=== PATIENT | female | born 1995 | race Caucasian/White ===

== ENCOUNTER 2016-11-01 08:27 | Emergency (ER) | payer BC ==
[2016-11-01 08:43] VITALS: BMI 32.9
[2016-11-01 09:43] LABS: RBC URINE 3 /hpf (0-3); URINE BACTERIA OCC (<OCC); URINE BILIRUBIN NEGATIVE (NEGATIVE); URINE BLOOD 1+ (NEGATIVE); URINE COLOR Yellow (YELLOW); URINE GLUCOSE (UA) NORMAL (Normal); URINE KETONE TRACE mg/dL (NEGATIVE); URINE LEUKOCYTE ESTERASE TRACE Leu/uL (Negative); URINE PROTEIN NEGATIVE (NEGATIVE); URINE UROBILINOGEN NORMAL mg/dL (0.2-1.0); WBC URINE 3 /hpf (0-5)
[2016-11-01] MEDS ORDERED: Iohexol 240 (50 ml) PO STA (10:04)
[2016-11-01] MEDS ORDERED: Sodium Chloride 0.9% 1,000 ML IV STA (10:04)
[2016-11-01] MEDS ORDERED: Iohexol 240 (50 ml) ONE (10:13)
[2016-11-01] MEDS ORDERED: Sodium Chloride 0.9% 1,000 ML ONE (10:14)
[2016-11-01 10:23] LABS: BASO % 0.5 % (0.0-2.0); EOS # 0.1 K/uL (0.0-0.7); EOS % 1.1 % (0.0-4.0); HEMATOCRIT 34.2 % (34.0-47.0); LYMPH # 1.7 K/uL (1.0-4.3); LYMPH % 20.4 % (20.0-40.0); MEAN CELL VOLUME 67.1 fL (81.0-99.0); MEAN CORPUSCULAR HEMOGLOBIN 20.4 pg (27.0-31.0); MEAN CORPUSCULAR HGB CONC 30.5 g/dL (33.0-37.0); MONO # 0.5 K/uL (0.0-0.8); RED CELL DISTRIBUTION WIDTH 20.4 % (11.5-14.5)
[2016-11-01 10:27] LABS: WHITE BLOOD COUNT 8.2 K/uL (4.8-10.8)
[2016-11-01 10:28] LABS: CHLORIDE 103 mmol/L (98-107); POTASSIUM 3.7 mmol/L (3.6-5.2); SODIUM 141 mmol/L (132-148)
[2016-11-01 10:30] LABS: ALKALINE PHOSPHATASE 115 U/L (38-126); AST/SGOT 26 U/L (14-36); BILIRUBIN,TOTAL 0.4 mg/dL (0.2-1.3); CARBON DIOXIDE 26 mmol/L (22-30); GFR AFRICAN-AMERICAN > 60; TOTAL PROTEIN 7.8 g/dL (6.3-8.3)
[2016-11-01 10:31] LABS: ALT/SGPT 27 U/L (9-52); BLOOD UREA NITROGEN 14 mg/dL (7-17); CALCIUM 8.5 mg/dl (8.6-10.4); GLUCOSE,RANDOM 78 mg/dL (65-105)
[2016-11-01 11:02] VITALS: RESP 20
[2016-11-01] MEDS ORDERED: Iodixanol 320 MG/ML 100 ML BOTTLE IV ONE (12:17)
--- NOTE | 2016-11-01 13:52 | CT ---
PROCEDURE: CT Abdomen and Pelvis with contrast HISTORY: RLQ abd pain COMPARISON: None. TECHNIQUE: Contrast dose: 100 cc of Visipaque Radiation dose: Total exam DLP = 986 mGy-cm. FINDINGS: LOWER THORAX: Unremarkable. LIVER: Unremarkable. No gross lesion or ductal dilatation. GALLBLADDER AND BILE DUCTS: Unremarkable. PANCREAS: Unremarkable. No gross lesion or ductal dilatation. SPLEEN: Unremarkable. ADRENALS: Unremarkable. No mass. KIDNEYS AND URETERS: Unremarkable. No hydronephrosis. No solid mass. VASCULATURE: Unremarkable. No aortic aneurysm. BOWEL: There is mild mural thickening in the descending and sigmoid colon. Part of this appearance may be due to lack of distension. There is no oral contrast in this portion of the colon. Mild colitis cannot be excluded APPENDIX: Normal appendix. PERITONEUM: Unremarkable. No free fluid. No free air. LYMPH NODES: Unremarkable. No enlarged lymph nodes. BLADDER: Unremarkable. REPRODUCTIVE: Unremarkable. BONES: No acute fracture. OTHER FINDINGS: None. IMPRESSION: There is mild mural thickening in the descending and sigmoid colon. Part of this appearance may be due to lack of distension. There is no oral contrast in this portion of the colon. Mild colitis cannot be excluded
--- NOTE | 2016-11-01 14:34 | C.PDOC ---
History Of Present Illness 21 y/o female presents to the emergency department complaining of RLQ abdominal pain that started today. She also reports some diarrhea and states she saw "tinges of blood in it." Patient reports past history of similar but states she has never been worked up for it. Patient denies any fever, vomiting, back pain, chest pain, shortness of breath, or other complaints. Time Seen by Provider: 11/01/16 09:01 Chief Complaint (Nursing): GI Problem History Per: Patient History/Exam Limitations: no limitations Onset/Duration Of Symptoms: Days (1), Persistent Current Symptoms Are (Timing): Still Present Location Of Pain/Discomfort: RLQ Radiation Of Pain To:: None Associated Symptoms: Diarrhea Recent travel outside of the [place]: No Past Medical History Reviewed: Historical Data, Nursing Documentation, Vital Signs Vital Signs: Last Vital Signs Temp 97.9 F 11/01/16 14:53 Pulse 76 11/01/16 14:53 Resp 20 11/01/16 14:53 BP 112/81 11/01/16 14:53 Pulse Ox 100 11/01/16 15:46 - Medical History PMH: No Chronic Diseases Surgical History: No Surg Hx Family History: States: No Known Family Hx - Social History Hx Tobacco Use: No Hx Alcohol Use: No Hx Substance Use: No - Immunization History Hx Tetanus Toxoid Vaccination: No Hx Influenza Vaccination: Yes (2016) Hx Pneumococcal Vaccination: No Review Of Systems Except As Marked, All Systems Reviewed And Found Negative. Constitutional: Negative for: Fever Cardiovascular: Negative for: Chest Pain Respiratory: Negative for: Shortness of Breath Gastrointestinal: Positive for: Abdominal Pain (RLQ), Diarrhea (with "tinges of blood"). Negative for: Vomiting Musculoskeletal: Negative for: Back Pain Physical Exam - Physical Exam Appears: Non-toxic, No Acute Distress Skin: Normal Color, Warm, Dry Head: Atraumatic, Normacephalic Eye(s): bilateral: Normal Inspection, PERRL Oral Mucosa: Moist Neck: Normal ROM, Supple Chest: Symmetrical Cardiovascular: Rhythm Regular Respiratory: Normal Breath Sounds, No Rales, No Rhonchi, No Wheezing Gastrointestinal/Abdominal: Bowel Sounds, Soft, Tenderness (RLQ), No Guarding, No Rebound Back: Normal Inspection, No CVA Tenderness Extremity: Normal ROM, No Swelling Neurological/Psych: Oriented x3, Normal Speech, Normal Cognition ED Course And Treatment - Laboratory Results Result Diagrams: 11/01/16 10:11 11/01/16 10:11 O2 Sat by Pulse Oximetry: 100 (ra) Pulse Ox Interpretation: Normal - CT Scan/US CT Abd/Pelvis Other Rad Studies (CT/US): Read By Radiologist, Radiology Report Reviewed CT/US Interpretation: Accession No. : [id number]. Patient Name / ID : HOLDEN ZURITA / [id number]. Exam Date : 11/01/2016 12:51:20 ( Approved ). Study Comment : Sex / Age : F / 21Y. Creator : Tam Wilson MD. Dictator : Tam Wilson MD. Hop Trainer : Terminal Make Up Operator : Tam Wilson MD. Approver2 : Report Date : 11/01/2016 13:51:12. My Comment : . PROCEDURE: CT Abdomen and Pelvis with contrast. HISTORY: RLQ abd pain. COMPARISON: None. TECHNIQUE: Contrast dose: 100 cc of Visipaque. Radiation dose: Total exam DLP = 986 mGy-cm. FINDINGS: LOWER THORAX: Unremarkable. LIVER: Unremarkable. No gross lesion or ductal dilatation. GALLBLADDER AND BILE DUCTS : Unremarkable. PANCREAS: Unremarkable. No gross lesion or ductal dilatation. SPLEEN: Unremarkable. ADRENALS: Unremarkable. No mass. KIDNEYS AND URETERS: Unremarkable. No hydronephrosis. No solid mass. VASCULATURE: Unremarkable. No aortic aneurysm. BOWEL: There is mild mural thickening in the descending and sigmoid colon. Part of this appearance may be due to lack of distension. There is no oral contrast in this portion of the colon. Mild colitis cannot be excluded. APPENDIX: Normal appendix. PERITONEUM: Unremarkable. No free fluid. No free air. LYMPH NODES: Unremarkable. No enlarged lymph nodes. BLADDER: Unremarkable. REPRODUCTIVE: Unremarkable. BONES: No acute fracture. OTHER FINDINGS: None. IMPRESSION: There is mild mural thickening in the descending and sigmoid colon. Part of this appearance may be due to lack of distension. There is no oral contrast in this portion of the colon. Mild colitis cannot be excluded Progress Note: CT Abd/Pelvis, Blood Work, Urinalysis, and Urine HCG were ordered. Patient treated with Morphine IVP, Zofran IVP, and IV Fluids. CT report reviewed, possible colitis. Patient treated with Flagyl PO and Cipro PO. On reevaluation, patient reports improvement of abdominal pain. Patient is resting comfortably, abdomen remains soft, and patient is tolerating PO. Patient feels comfortable going home. Patient discharged home and instructed to follow up with physician/clinic in 1-2 days or return to ED if symptoms persist or worsen. Disposition - Disposition Disposition: HOME/ ROUTINE Disposition Time: 14:31 Condition: GOOD Additional Instructions: Follow up with your PMD within 1-2 days. Return to Ed if feel worse.. Prescriptions: Dicyclomine [Bentyl] 20 mg PO TID #30 tab Ciprofloxacin [Cipro] 1 tab PO BID #20 tab Metronidazole [Flagyl] 500 mg PO TID #30 tablet Instructions: Colitis (ED) - Clinical Impression Clinical Impression: Colitis - PA / DIRECTOR OF OPERATIONS HOME HEALTH / Resident Statement MD/DO has reviewed & agrees with the documentation as recorded. - Scribe Statement The provider has reviewed the documentation as recorded by the Scribe (Rosita Hernandez) All medical record entries made by the Scribe were at my direction and personally dictated by me. I have reviewed the chart and agree that the record accurately reflects my personal performance of the history, physical exam, medical decision making, and the department course for this patient. I have also personally directed, reviewed, and agree with the discharge instructions and disposition.
[2016-11-01 14:54] VITALS: BP 112/81; PULSE 76; TEMP 97.9
[2016-11-01 15:43] VITALS: O2SAT 100
== END 2016-11-01 14:53 | disposition home or self-care (01) ==
LOC: C.ER 08:27
DX: K52.9 Noninfective gastroenteritis and colitis, unspecified (principal)
CPT/HCPCS: 74177; 80053; 81001; 83690; 84703; 85025; 96361; 96374; 96375; 99285; J2270; J2405; J7040; Q9966; Q9967